=== PATIENT | female | born 1990 | race Caucasian/White ===

== ENCOUNTER 2023-03-04 02:18 | Emergency (ER) | payer MEDICARE, MEDICAID, SELFPAY | END 2023-03-04 05:24 | disposition home or self-care (01) | LOC: ER 05:27 | PROVIDERS: Emergency Provider Emergency Medicine; PCP Family Medicine | DX: Z46.6 Encounter for fitting and adjustment of urinary device (principal) | CPT/HCPCS: 99284 ==